=== PATIENT | male | born 1965 | race Caucasian/White ===

== ENCOUNTER 2017-06-08 13:47 | Emergency (ER) | payer OTHER ==
[2017-06-08 14:01] VITALS: BP 145/99
--- NOTE | 2017-06-08 20:40 | UC ---
Gisell Davies Thomas, scribed for Michael Mckoy MD on 06/08/17 at 1549 . Dental HPI - HPI Summary HPI Summary: The patient is a 52 year old male presenting to Urgent Care complaining of dental pain that began one week ago. The pain is concentrated in teeth 10-12 and the pain radiates up to his face. The patient reports fracturing his teeth two days ago. He has been unable to schedule a dentist appointment. - History of Current Complaint Chief Complaint: UCDentalProblem Stated Complaint: DENTAL PAIN Time Seen by Provider: 06/08/17 15:36 Hx Obtained From: Patient Onset/Duration: Lasting Weeks - 1, Still Present Severity: Severe Pain Intensity: 8 Pain Scale Used: 0-10 Numeric Aggravating Factor(s): Other - Touch Alleviating Factor(s): Nothing - Allergies/Home Medications Allergies/Adverse Reactions: Allergies Allergy/AdvReac Type Severity Reaction Status Date / Time No Known Allergies Allergy Verified 06/08/17 14:01 Home Medications: Home Medications Naproxen Sodium [Naproxen 550 mg] 1 tab PO Q8HR PRN 06/08/17 [History Confirmed 06/08/17] PMH/Surg Hx/FS Hx/Imm Hx Previously Healthy: Yes - NEGATIVE: blindness, deafness, CVA - Surgical History Surgical History: None - Family History Known Family History: Positive: Other - Patient denies relevant FHx - Social History Alcohol Use: Occasionally Substance Use Type: None Smoking Status (MU): Current Every Day Smoker Amount Used/How Often: 1/2PPD - Immunization History Most Recent Influenza Vaccination: unknown Review of Systems Constitutional: Other - NEGATIVE: fever ENT: Dental Pain Is Patient Immunocompromised?: No All Other Systems Reviewed And Are Negative: Yes Physical Exam Triage Information Reviewed: Yes Vital Signs: Initial Vital Signs Temp 100.1 F 06/08/17 13:57 Pulse 97 06/08/17 13:57 Resp 14 06/08/17 13:57 BP 145/99 06/08/17 13:57 Pulse Ox 98 06/08/17 13:57 Vital Signs Reviewed: Yes - Additional Comments VITAL SIGNS: Reviewed. GENERAL: Patient is a well-developed and nourished male who is lying comfortable in the stretcher. Patient is not in any acute respiratory distress. HEAD AND FACE: Normocephalic EYES: PERRLA, EOMI x 2. EARS: Hearing grossly intact. MOUTH: Oropharynx within normal limits. He has extensive dental decay with multiple teeth missing, including teeth 10 and 12. NECK: Supple, trachea is midline, no adenopathy, no JVD, no carotid bruit. CHEST: Symmetric, no tenderness at palpation LUNGS: Clear to auscultation bilaterally. No wheezing or crackles. CVS: Regular rate and rhythm, S1 and S2 present, no murmurs or gallops appreciated. ABDOMEN: Soft, non-tender. Bowel sounds are normal. No abdominal abnormal pulsations. EXTREMITIES: Full ROM in all major joints, no edema, no cyanosis or clubbing. NEURO: Alert and oriented x 3. No acute neurological deficits. Speech is normal and follows commands. SKIN: Dry and warm Dental Complaint Course/Dx - Course Course Of Treatment: The patient is a 52 year old male presenting to Urgent Care complaining of dental pain that began one week ago. The pain is concentrated in teeth 10-12 and the pain radiates to his face. He reports fracturing his teeth two days ago. He has been unable to schedule a dentist appointment. He has extensive dental decay with multiple teeth missing, including teeth 10 and 12. The patient is diagnosed with dental pain, dental infection, and dental caries. The patient will be discharged home and instructed to follow up with the dentist. The patient is prescribed Amoxicillin and Naprosyn. - Differential Dx/Diagnosis Differential Diagnosis/Dx: Dental Abscess, Dental Caries, Fractured Tooth, Gingivitis, Epifanio's Angina, Peridontic Disease Provider Diagnoses: Dental pain, dental infection, dental caries Discharge - Discharge Plan Condition: Stable Disposition: HOME Prescriptions: Amoxicillin PO (*) [Amoxicillin 875 MG (*)] 875 mg PO BID #20 tab Naproxen [Naprosyn 500 mg] 500 mg PO BID PRN #30 tab PRN Reason: Pain Patient Education Materials: Toothache (ED) Referrals: Félix Blake MD [Primary Care Provider] - If Needed Additional Instructions: You need to make an appointment with a dentist in the next three days. Return to urgent care for any new or worsening symptoms. The documentation as recorded by the Gisell sen Thomas accurately reflects the service I personally performed and the decisions made by Ean arceo Walter, MD.
== END 2017-06-08 15:58 | disposition home or self-care (01) ==
LOC: UCEAST 13:47
DX: K02.9 Dental caries, unspecified (principal); K08.89 Other specified disorders of teeth and supporting structures; F17.290 Nicotine dependence, other tobacco product, uncomplicated
CPT/HCPCS: 99202; G0463